=== PATIENT | male | born 1960 | race Caucasian/White ===

== ENCOUNTER → 2017-05-15 | Outpatient (CLI) | payer OTHER ==
--- NOTE | 2017-05-15 12:34 | DIAGNOSTIC IMAGING REPORT ---
PROCEDURE: XR LUMBAR SPINE 2 OR 3 VIEWS INDICATION: Back pain TECHNIQUE: Three views of the lumbar spine COMPARISON: None. FINDINGS: Five lumbar-type vertebral bodies are present. Normal vertebral body height without fracture. Normal transverse alignment. Trace retrolisthesis T12 on L1, L2-L3, L3 and L4. Moderate disc height loss L1-2, L2-3, L3-4, mild disc height loss at L4-5, and moderately severe disc height loss L5-S1. There is moderate L5-S1 end plate sclerosis and minor anterior spurring. There are mild anterior endplate spurs from L1-L4. Moderate facet hypertrophy L5-S1. The visible osseous pelvis and bowel gas pattern are normal. IMPRESSION: 1. Diffuse disc degeneration L1-S1, most severe at the L5-S1 level. 2. Moderate facet hypertrophy at L5-S1. Degenerative changes at this level may cause bilateral L5-S1 foraminal narrowing.
== END ==
LOC: XR SRH 11:55
DX: M51.37 Other intervertebral disc degeneration, lumbosacral region (principal); M47.817 Spondylosis without myelopathy or radiculopathy, lumbosacral region